=== PATIENT | male | born 1945 | race Caucasian/White ===

== ENCOUNTER → 2018-08-27 | Outpatient (CLI) | payer MEDICARE, BC ==
[~2018-08-27] MED LIST: ATORVASTATIN CA20 MG PO; BISOPROLOL FUMAR5 MG PO; CYMBALTA30 MG PO; METFORMIN HCL500 MG PO; PANTOPRAZOLE SO40 MG PO
--- NOTE | 2018-08-27 11:08 | Diagnostic Imaging Report ---
PROCEDURE: US THYROID COMPARISON: None. INDICATIONS:ENDOCRINE DISORDER TECHNIQUE: Transverse and longitudinal orozco-scale sonographic images of the thyroid were obtained and supplemented with color Doppler. FINDINGS: Right thyroid lobe: Measures 4.8 x 1.1 x 2.0 cm. Left thyroid lobe: Measures 4.2 x 1.1 x 1.9 cm. There is a small hyperechoic nodule measuring 8 x 6 x 10 mm in the mid aspect of the left thyroid lobe. Isthmus: Measures 0.3 cm. CONCLUSION: 1. Small hyperechoic nodule in the left thyroid lobe does not meet criteria for biopsy. 2. Followup in one year recommended. Marty Márquez D.O. Dictated by: Marty Márquez D.O. on 08/27/2018 at 11:18 Electronically approved by: Marty Márquez D.O. on 08/27/2018 at 11:18
--- NOTE | 2018-08-27 14:26 | Diagnostic Imaging Report ---
Parathyroid Scan with SPECT Reason for exam: 72 M with hyperparathyroidism Radiopharmaceutical: Tc-99m sestamibi 27 mCi After intravenous administration of the radiopharmaceutical, immediate and 2-hour planar images of the neck and upper chest were obtained. Tomographic images of the neck and upper chest were also obtained following the initial planar images. Distribution of tracer activity appears physiologic throughout the neck and upper chest on the planar and tomographic images. No focal areas of increased tracer accumulation are identified. On the delayed planar images, washout of tracer from the thyroid is complete with no focal areas of persistent tracer activity. Impression: Negative parathyroid scan No enlarged hypermetabolic parathyroid glands are identified. Signed by: Dr. Vonda Cabrera M.D. on 08/27/2018 2:23 PM
== END ==
LOC: US 09:27
PROVIDERS: ATTEND Family Medicine
DX: E34.9 Endocrine disorder, unspecified (principal)
CPT/HCPCS: 76536; 78071; A9512

== ENCOUNTER 2020-05-23 10:09 | Emergency (ER) | payer MEDICARE, BC ==
[~2020-05-23] VITALS: Ht 180.3 cm; Wt 97.5 kg
--- NOTE | 2020-05-23 10:36 | Emergency Department Note ---
History of Present Illnes History of Present Illness Chief Complaint: back pain History of Present Illness This is a 74 year old male, with a history of hyperlipidemia and NIDDM, who presents for evaluation of right sided back and right rib pain. Patient states that 5 days ago, he was loading the back of his truck, standing on a small step stool, and when he stepped up to get into the truck, he fell backwards onto the right side, landing on concrete. Patient did hit his head, but had no loss of consciousness. He denies any headache, dizziness, nausea, or vomiting. Patient's primary complaint is pain in the right anterior ribs, just below the right nipple, that is worse with deep inspiration. He also has a similar pain on the right side of his back, just below the tip of the scapula. He's been taking Tylenol for the pain, without much relief. He denies any fever, chills, nausea, vomiting, shortness of breath, or chest tightness. Historian: Patient Arrival Mode: Car Diabetes Manager Required: No Onset (how long ago): day(s) (5) Location: right ribs Quality: pain, sharp, stabbing Radiation: Reports non-radiation Severity: moderate Onset quality: sudden Duration (how long): day(s) (5) Timing of current episode: constant Progression: unchanged Chronicity: new Context: Reports trauma/injury Relieving factors: none Associated symptoms: Reports denies other symptoms; Denies cough, Denies fever/chills, Denies shortness of breath Treatments prior to arrival: other (Acetaminophen) Risk factors: elderly, recent fall Past Medical/Family History Physician Review I have reviewed the patient's past medical and family history. Any updates have been documented here. Past Medical History Recent Fever: No Clinical Suspicion of Infectio: No New/Unexplained Change in Ment: No Past Medical History: Diabetes (NIDDM), GERD, Hyperlipedemia Past Surgical History: T&A Other Surgery: Shoulder Social History Smoking Cessation: Never Smoker Counseling Performed: No Alcohol Use: None Any Illegal Drug Use: No TB Exposure/Symptoms: No Physically hurt or threatened: No Family History Family history of heart diseas: No Other Last Tetanus: unknown Any Pre-Existing Lines (PICC,: No Is patient up to date on immun: No Review of Systems Review of Systems Constitutional: Denies chills, Denies fever EENTM: Reports as per HPI Cardiovascular: Denies chest pain, Denies palpitations Respiratory: Reports pain on inspiration, Reports pain with cough; Denies cough, Denies dyspnea, Denies dyspnea on exertion Gastrointestinal: Denies nausea, Denies vomiting Genitourinary: Reports no symptoms Musculoskeletal: Reports back pain, Reports muscle pain; Denies neck pain Integumentary: Reports other (healing abrasion on occiput and right elbow;); Denies change in color, Denies rash Neurological: Denies numbness, Denies tingling, Denies weakness Psychological: Reports no symptoms Review of other systems: All other systems negative Physical Exam Related Data Allergies: Coded Allergies: No Known Allergies (Verified , 06/25/10) Vital signs reviewed: Yes Physical Exam CONSTITUTIONAL Constitutional: Present well-developed, Present well-nourished; Absent distressed, Absent ill appearing HENT HENT: Present normocephalic, Present atraumatic, Present oropharynx clear/moist, Present nose normal HENT L/R: Present left ext ear normal, Present right ext ear normal EYES Eyes: Reports PERRL, Reports conjunctivae normal NECK Neck: Present ROM normal, Present supple; Absent cervical adenopathy PULMONARY Pulmonary: Present breath sounds normal, Present other (visible pain with inspiration;); Absent respiratory distress, Absent chest tenderness CARDIOVASCULAR Cardiovascular: Present regular rhythm, Present heart sounds normal, Present capillary refill normal, Present normal rate GASTROINTESTINAL GENITOURINARY SKIN Skin: Present warm, Present dry, Present other (healing abrasion of occiput and right elbow;) MUSCULOSKELETAL Musculoskeletal: Present ROM normal; Absent deformity, Absent tenderness NEUROLOGICAL Neurological: Present alert, Present oriented x 3, Present no gross motor or sensory deficits PSYCHOLOGICAL Psychological: Present mood/affect normal, Present judgement normal Results Imaging Imaging results reviewed: Yes Impressions [place] [id number] Patient Name: PRAMOD GILBERT MR #: [id number] : 1945 Age/Sex: 74/M Req #: [id number] Adm Physician: Ordered by: WINDY ARELLANO MD Report #: [id number] Location: [facility] Room/Bed: Procedure: [id number] HOPD/RIBS UNILAT W/CXR- HOPD Exam Date: 05/23/20 Exam Time: 1103 REPORT STATUS: Signed EXAM: RIBS UNILAT W/CXR- HOPD DATE: 05/23/2020 10:55 AM INDICATION: Fall COMPARISON: None FINDINGS: The trachea is midline. The lungs are symmetrically expanded without evidence for focal consolidation, pneumothorax, or significant pleural effusion. The cardiomediastinal silhouette is within normal limits. No acute osseous abnormality is identified. Specifically, no radiographically evident right-sided rib fracture is appreciated. IMPRESSION: No acute cardiopulmonary process identified. No radiographically evident right-sided rib fracture appreciated. Signed by: Dr. Daniel Barnard MD on 05/23/2020 11:20 AM Dictated By: DANIEL BARNARD MD 112 Transcribed By: CORRIE on 05/23/20 112 COPY TO: WINDY ARELLANO MD~ Assessment & Plan Medical Decision Making MDM - It is very important that you practice deep breathing multiple times throughout the day, to prevent the development of pneumonia. He should breed to the point that it is uncomfortable. - He may take pain medication as directed, along with Aleve 1 tablet twice da shonna with food. - Follow-up, if you develop fever, worsening pain, shortness of breath, or productive cough. Assessment & Plan Final Impression: (1) Contusion of rib on right side (2) Pleuritic pain (3) Fall (4) Diabetes (5) Hyperlipidemia Depart Disposition: HOME, SELF-senior living Meds Active Scripts Acetaminophen/Codeine* (TYLENOL # 3*) 1 Ea Tab, 1-2 TAB PO Q6H for pain, #20 TAB 0 Refills Do NOT take and drive or operate machinery. Prov:WINDY ARELLANO MD 05/23/20 Reported Medications Bisoprolol Fumarate (BISOPROLOL FUMARATE) 5 Mg Tablet, 2.5 MG PO BID 03/20/16 Duloxetine Hcl (CYMBALTA) 30 Mg Capsule.dr, 30 MG PO DAILY, #30 CAP 03/20/16 Atorvastatin Calcium (ATORVASTATIN CALCIUM) 20 Mg Tablet, 20 MG PO DAILY, TAB 03/20/16 Metformin Hcl (METFORMIN HCL) 500 Mg Tablet, 500 MG PO DAILY, TAB 03/20/16 Pantoprazole Sodium* (PROTONIX) 40 Mg Tablet.dr, 40 MG PO DAILY, TAB 03/20/16 WINDY ARELLANO MD May 23, 2020 10:36
--- OUTSIDE RECORDS SUMMARY | 2020-05-23 10:56 | XMS REPORT | Continuity of Care Document ---
Author Author [facility] Organization [facility] Address [address] [place] [address] Phone Unavailable Care Team Providers Care Actuarial Intern Name Role Phone ZAHIRA SORIANOradhatia Unavailable Problems Condition Name Condition Details Condition Category Status Onset Date Resolution Date Last Treatment Date Treating Clinician Comments Source Diabetes mellitus type II Diab etes mellitus type II Active Problem 10/26/2019 Bert Kauffman MD, [place] Problem Active 2019-10-26 05:10:12 Dennis Hoyt Coronary atherosclerosis of [place] coronary artery Coronary atherosclerosis of [place] coronary artery Active Problem 10/26/2019 Bert Kauffman MD, [place] Problem Active 2019-10-26 05:10:12 [facility] Palpitations Palp itations Active Problem 10/26/2019 Bert Kauffman MD, [place] Problem Active 2019-10-26 05:10:12 [facility] Mixed hyperlipidemia Mixe d hyperlipidemia Active Problem 10/26/2019 Bert Kauffman MD, [place] Problem Active 2019-10-26 05 :10:12 Dennis Hoyt Family history of ischemic heart disease and other diseases of the circulatory system Family history o f ischemic heart disease and other diseases of the circulatory system Active Problem 10/26/2019 Bert Kauffman MD, PA Problem Active 2019-10-26 05:10:12 Mic Hoyt Atherosclerotic heart disease of [place] coronary artery with unspecified angina pectoris Atherosclerotic heart disease of [place] coronary artery with unspecified angina pectoris Active Problem 10/26/2019 Bert Kauffman MD, PA Problem Active 2019-10-26 05:10:12 Dennis Hoyt CAD without angina CAD without angina Active Problem 10/26/2019 Bert Kauffman MD, PA Problem Active 2019-10-26 05:10:12 [facility] Mixed hyperlipidemia Mixe d hyperlipidemia Active Problem 10/26/2019 Bert Kauffman MD, PA Problem Active 2019-10-26 05 :10:12 [facility] Lai Palpitations Palp itations Active Problem 10/26/2019 Bert Kauffman MD, PA Problem Active 2019-10-26 05:10:12 Dennis Hoyt Pulmonary hypertension, secondary Pulmonary hypertension, secondary Active Problem 10/26/2019 Bert Kauffman MD, PA Problem Active 2019-10-26 05:10:12 Memor abigail Hoyt Type 2 diabetes mellitus without complications Type 2 diabetes mellitus without complications Active Problem 10/26/2019 Bert Kauffman MD, PA Problem Active 2019-10-26 05:10:12 Mic riasuresh Hoyt Atherosclerotic heart disease of [place] coronary arter y without angina pectoris Atherosclerotic heart disease of [place] coronary artery without angina pectoris Active Problem 03/01/2016 Bert Kauffman MD, PA Problem Active 2016-03-01 04:10:05 Memor abigail Hoyt Pulmonary hypertension, unspecified Pulmonary hypertension, unspecified Active Problem 10/26/2019 Bert Kauffman MD, PA Problem Active 2019-10-26 05:10:12 Memor abigail Hoyt Body mass index (BMI) 30.0-30.9, adult Body mass index (BMI) 30.0-30.9, adult Active Problem 10/26/2019 Bert Kauffman MD, PA Problem Active 2019-10-26 05:10:12 Ricardaor abigail Hoyt Other obesity due to excess calories Other obesity due to excess calories Active Diagnosis 10/26/2019 Bert Kauffman MD, PA Diagnosis Active 2019-10-26 05:10:12 Ricardaor abigail Hoyt Allergies, Adverse Reactions, Alerts Allergy Name Allergy Type Status Severity Reaction(s) Onset Date Inacti ve Date Treating Clinician Comments Source Aspirin Aspirin Active stomach pain 2019-10-24 00:00:00 Dennis Lai Social History Social Habit Start Date Stop Date Quantity Comments Source TobaccoUse: 2016-03-05 00:00:00 2016-03-05 00:00:00 Dennis Lai Medications Ordered Medication Name Filled Medication Name Start Date Stop Da te Current Medication? Ordering Clinician Indication Dosage Frequency Signature (SIG) Comments Components Source Pantoprazole Sodium 2019-10-26 05:10:12 Yes Bert [facility]auffman 1 tablet [facility] Atorvastatin Calcium 2019-10-26 05:10:12 Yes Bert Kauffman 1 tablet [facility] Metformin HCl 2019-10-26 05:10:12 Yes Bert Kauffman 1 tablet [facility] Cymbalta 2019-10-26 05:10:12 Yes Bert Isrealn Tayyan 1 capsule [facility] Bisoprolol Fumarate 2019-06-09 04:10:05 Yes Bert Maylin Tayyan 1/2 half tablet [facility] Carvedilol 2019-06-06 00:00:00 Yes Bert Alesiawan Tayyan 1 tablet [facility] Carvedilol 2019-06-06 00:00:00 Yes Bertscarlet Carlisle Tayyan 1 tablet [facility] Cymbalta 2018-03-05 04:10:20 Yes Bertscarlet Bachn Tayyan 1 capsule [facility] Metformin HCl 2017-03-04 04:10:14 Yes Bertscarlet Dumaswan Dashawnyan 1 tablet [facility] Cymbalta 2017-03-04 04:10:14 Yes Bertscarlet Bachn Tayyan 1 capsule [facility] Pantoprazole Sodium 2017-03-04 04:10:14 Yes Bert Bachn Tayyan 1 tablet [facility] Bisoprolol Fumarate 2017-03-04 04:10:14 Yes Bert Tamezyan 1/2 half tablet [facility] Atorvastatin Calcium 2017-03-04 04:10:14 Yes Bert Tamezyan 1 tablet [facility] Vital Signs Vital Name Observation Time Observation Value Comments Source Weight 2019-10-24 21:00:00 [facility] Heart Rate 2019-10-24 21:00:00 [facility] Diastolic (mm Hg) 2019-10-24 21:00:00 [facility] Systolic (mm Hg) 2019-10-24 21:00:00 [facility] [place] Weight 2019-06-06 18:15:00 [facility] Heart Rate 2019-06-06 18:15:00 [facility] Diastolic (mm Hg) 2019-06-06 18:15:00 [facility] [place] Systolic (mm Hg) 2019-06-06 18:15:00 [facility] [place] Weight 2018-11-30 17:15:00 [facility] Heart Rate 2018-11-30 17:15:00 [facility] Diastolic (mm Hg) 2018-11-30 17:15:00 [facility] [place] Systolic (mm Hg) 2018-11-30 17:15:00 Mic [facility] Weight 2018-11-15 21:45:00 [facility] Heart Rate 2018-11-15 21:45:00 [facility] Diastolic (mm Hg) 2018-11-15 21:45:00 [facility] [place] Systolic (mm Hg) 2018-11-15 21:45:00 [facility] [place] Weight 2018-03-02 16:30:00 [facility] Heart Rate 2018-03-02 16:30:00 [facility] Diastolic (mm Hg) 2018-03-02 16:30:00 [facility] Systolic (mm Hg) 2018-03-02 16:30:00 [facility] Weight 2017-03-03 15:00:00 [facility] Heart Rate 2017-03-03 15:00:00 [facility] Diastolic (mm Hg) 2017-03-03 15:00:00 [facility] Systolic (mm Hg) 2017-03-03 15:00:00 [facility] [place] Weight 2016-03-03 20:15:00 [facility] Heart Rate 2016-03-03 20:15:00 [facility] Diastolic (mm Hg) 2016-03-03 20:15:00 [facility] Systolic (mm Hg) 2016-03-03 20:15:00 [facility] [place] Weight 2016-01-31 19:30:00 [facility] Heart Rate 2016-01-31 19:30:00 [facility] Diastolic (mm Hg) 2016-01-31 19:30:00 [facility] Systolic (mm Hg) 2016-01-31 19:30:00 [facility] [place] Weight 2015-08-02 21:00:00 [facility] Heart Rate 2015-08-02 21:00:00 [facility] Diastolic (mm Hg) 2015-08-02 21:00:00 [facility] [place] Systolic (mm Hg) 2015-08-02 21:00:00 [facility] [place] Procedures This patient has no known procedures. Encounters Start Date/Time End Date/Time Encounter Type [facility] Source 2019-10-24 15:00:00 2019-10-24 15:00:00 Outpatient Bert Marmolejo [id number] [employer]Works 2019-06-14 10:00:00 2019-06-14 10:00:00 [place] [id number] eClinicalWorks 2019-06-06 13:15:00 2019-06-06 13:15:00 [place] [id number] [employer] 2018-11-30 12:15:00 2018-11-30 12:15:00 [place] [id number] [employer]Works 2018-11-26 09:00:00 2018-11-26 09:00:00 [place] [id number] [employer]Works 2018-11-15 15:45:00 2018-11-15 15:45:00 [place] [id number] [employer]Works 2018-03-04 14:00:00 2018-03-04 14:00:00 [place] [id number] [employer]Works 2018-03-02 11:30:00 2018-03-02 11:30:00 [place] [id number] [employer]Works 2017-03-03 13:00:00 2017-03-03 13:00:00 [place] [id number] [employer]Works 2017-03-03 10:00:00 2017-03-03 10:00:00 [place] [id number] [employer]Works 2016-03-03 15:15:00 2016-03-03 15:15:00 Outpatient Bret Kauffman [place] [id number] [employer]Works 2016-02-29 09:00:00 2016-02-29 09:00:00 Outpatient Bert [place]auffman [place] [id number] [employer] 2016-01-31 14:30:00 2016-01-31 14:30:00 Outpatient Bert Kauffman [place] [id number] [employer] 2015-08-07 14:15:00 2015-08-07 14:15:00 Outpatient Bert Kauffman [place] [id number] [employer] 2015-08-02 15:00:00 2015-08-02 15:00:00 Outpatient Bert Kauffman [place], [place] [id number] [place] Results Test Description Test Time Test Comments Results Result Comments Source PARATHYROID IMAGING W SPECT 2018-08-27 14:22:00 [place] [address] Patient Name: PRAMOD GILBERT MR #: [id number] : 1945 Age/Sex: 72/M Req #: [id number] Adm Physician: Ordered by: ZAHIRA SORIANO MD Report #: [id number] Location: Room/Bed: Procedure: [id number] NM/PARATHYROID IMAGING W SPECT Exam Date: 08/27/18 Exam Time: 1045 REPORT STATUS: Signed Parathyroid Scan with SPECT Reason for exam: 72 M with hyperparathyroidism Radiopharmaceutical: Tc- 99m sestamibi 27 mCi After intravenous administration of the radiopharmaceutical, immediate and 2-hour planar images of the neck and upper chest were obtained. Tomographic images of the neck and upper chest were also obtained following the initial planar images. Distribution of tracer activity appears physiologic throughout the neck and upper chest on the planar and tomographic images. No focal areas of increased tracer accumulation are identified. On the delayed planar images, washout of tracer from the thyroid is complete with no focal areas of persistent tracer activity. Impression: Negative parathyroid scan No enlarged hypermetabolic parathyroid glands are identified. Signed by: Dr. Rojelio Cabrera M.D. on 08/27/2018 2:23 PM Dictated By: ROJELIO CABRERA MD 1422 Transcribed By: CORRIE on 08/27/18 1423 COPY TO: ZAHIRA SORIANO MD US THYROID 2018-08-27 11:19:00 [place] [address] Patient Name: PRAMOD GILBERT MR #: [id number] : 1945 Age/Sex: 72/M Req #: [id number] Adm Physician: Ordered by: ZAHIRA SORIANO MD Report #: [id number] Location: US Room/Bed: Procedure: [id number] US/US THYROID Exam Date: 08/27/18 Exam Time: 1004 REPORT STATUS: Signed PROCEDURE: US THYROID COMPARISON: None. INDICATIONS: ENDOCRINE DISORDER TECHNIQUE: Transverse and longitudinal orozco- scale sonographic images of the thyroid were obtained and supplemented with color Doppler. FINDINGS: Right thyroid lobe: Measures 4.8 x 1.1 x 2.0 cm. Left thyroid lobe: Measures 4.2 x 1.1 x 1.9 cm. There is a small hyperechoic nodule measuring 8 x 6 x 10 mm in the mid aspect of the left thyroid lobe. Isthmus: Measures 0.3 cm. CONCLUSION: 1. Small hyperechoic nodule in the left thyroid lobe does not meet criteria for biopsy. 2. Followup in one year recommended. Marty Márquez D.O. Dictated by: Marty Márquez D.O. on 08/27/2018 at 11:18 Electronically approved by: Marty Márquez D.O. on 08/27/2018 at 11:18 Dictated By: MARTY MÁRQUEZ DO 1119 Transcribed By: RICO on 08/27/18 1119 COPY TO: ZAHIRA SORIANO MD
--- OUTSIDE RECORDS SUMMARY | 2020-05-23 10:56 | XMS REPORT | Continuity of Care Document ---
Author Author Dennis Hoyt [employer] PRAMOD Villalobos [employer] Address Unknown Phone Unavailable Care Team Providers Care [employer] Professor Name Role Phone [employer] Unavailable Un available Problems Problem Status Onset Date Classification Date Reported Comments Source Diabetes mellitus type II Acti ve Problem 08/2020 Bert Kauffman MD, [place] Coronary atherosclerosis of crow coronary artery Active Problem 10/26/2019 Bert Kauffman MD, [place] Palpitations Active Problem 10/26/2019 Bert Kauffman MD, PA Mixed hyperlipidemia Active Problem 10/26/2019 Bert Kauffman MD, PA Family history of ischemic heart disease and other diseases of the circulatory system Active Problem 10/26/2019 Bert Kauffman MD, RENETTA Atherosclerotic heart disease of crow coronary artery with unspecified angina pectoris Active Problem 10/26/2019 Bert Kauffman MD, RENETTA CAD without angina Active Problem 10/26/2019 Bert Kauffmna MD, PA Mixed hyperlipidemia Active Problem 10/26/2019 Bert Kauffman MD, RENET[place] Palpitations Active Problem 10/26/2019 Bert Kauffman MD, RENET[place] Pulmonary hypertension, secondary Active Problem 08/2020 Bert Kauffman MD, PA Type 2 diabetes mellitus without complications Active Problem 10/26/2019 Bert Kauffman MD, P A Atherosclerotic heart disease of crow coronary artery without angina pectoris Active Problem 03/01/2016 Bert Kauffman MD, [place] Pulmonary hypertension, unspecified Active Problem 08/2020 Bert Kauffman MD, PA Body mass index (BMI) 30.0-30.9, adult Active Problem 08/2020 Bert Kauffman MD, PA Other obesity due to excess calories Active Diagnosis 0 10/26/2019 Bert Kauffman MD, PA Medications Medication Details Route Status Patient Instructions Ordering Provider Order Date Source Carvedilol 1 tablet Orally Active 6.25 MG Orally twice a day (bid) [place] 06/06/2019 Bert Kauffman MD, PA Carvedilol 1 tablet Orally Active 3.125 MG Orally twice a day (bid) Daly 06/06/2019 Bert Kauffman MD, PA Cymbalta 1 capsule Orally Active 30 mg Orally Once a day Daly Kauffman MD, PA Pantoprazole Sodium 1 tablet Orally Active 40 MG Orally Once a day Daly Kauffman MD, PA Atorvastatin Calcium 1 tablet Orally Active 20 MG Orally Once a day Daly Kauffman MD, PA Bisoprolol Fumarate 1/2 half t ablet Orally Active 5 MG Orally twice a day (bid) Daly Kauffman MD, PA Metformin HCl 1 tablet by mouth Active 500 mg by mouth daily Daly Kauffman MD, PA Metformin HCl 1 tablet by mouth Active 500 mg by mouth daily Daly Kauffman MD, PA Cymbalta 1 capsule Orally Active 30 mg Orally Once a day Daly Kauffman MD, PA Pantoprazole Sodium 1 tablet Orally Active 40 MG Orally Once a day Daly Kauffman MD, PA Bisoprolol Fumarate 1/2 half t ablet Orally Active 5 MG Orally twice a day (bid) Daly Kauffman MD, PA Atorvastatin Calcium 1 tablet Orally Active 20 MG Orally Once a day Daly Kauffman MD, PA Cymbalta 1 capsule Orally Active 60 MG Orally Once a day Daly Kauffman MD, PA Allergies, Adverse Reactions, Alerts Substance Category Reaction Severity Reaction type Status Date Reported Comments Source Aspirin Adverse Reaction stomach pain Adverse Reaction Active 10/24/2019 Bert Kauffman MD, PA Immunizations No Data Provided for This Section Results No Data Provided for This Section Pathology Reports No Data Provided for This Section Diagnostic Reports No Data Provided for This Section Consultation Notes No Data Provided for This Section Discharge Summaries No Data Provided for This Section History and Physicals No Data Provided for This Section Vital Signs Vital Sign Value Date Comments Source Weight 214 10/24/2019 Bert Kauffman MD, PA Heart Rate 88 10/24/2019 Bert Kauffman MD, PA Diastolic (mm Hg) 77 10/24/2019 Bert Kauffman MD, PA Systolic (mm Hg) 126 10/24/2019 Bert Kauffman MD, PA Weight 220 06/06/2019 Bert Kauffman MD, PA Heart Rate 59 06/06/2019 Bert Tayyan, MD, PA Diastolic (mm Hg) 60 06/06/2019 Bert Kauffman MD, PA Systolic (mm Hg) 126 06/06/2019 Bert Kauffman MD, PA Weight 215 11/30/2018 Bert Kauffman MD, PA Heart Rate 75 11/30/2018 Bert Kauffman MD, PA Diastolic (mm Hg) 79 11/30/2018 Bert Kauffman MD, PA Systolic (mm Hg) 121 11/30/2018 Bert Kauffman MD, PA Weight 210 11/15/2018 Bert Kauffman MD, PA Heart Rate 66 11/15/2018 Bert Kauffman MD, PA Diastolic (mm Hg) 82 11/15/2018 Bert Kauffman MD, PA Systolic (mm Hg) 115 11/15/2018 Bert Kauffman MD, PA Weight 210 03/02/2018 Bert Kauffman MD, PA Heart Rate 63 03/02/2018 Bert Kauffman MD, PA Diastolic (mm Hg) 75 03/02/2018 Bert Kauffman MD, PA Systolic (mm Hg) 118 03/02/2018 Bert Kauffman MD, PA Weight 206 03/03/2017 Bert Kauffman MD, PA Heart Rate 58 03/03/2017 Bert Kauffman MD, PA Diastolic (mm Hg) 60 03/03/2017 Bert Kauffman MD, PA Systolic (mm Hg) 130 03/03/2017 Bert Kauffman MD, PA Weight 206 03/03/2016 Bert Kauffman MD, PA Heart Rate 78 03/03/2016 Bert Kauffman MD, PA Diastolic (mm Hg) 80 03/03/2016 Bert Kauffman MD, PA Systolic (mm Hg) 122 03/03/2016 Bert Kauffman MD, PA Weight 210 01/31/2016 Bert Kauffman MD, PA Heart Rate 78 01/31/2016 Bert Kauffman MD, PA Diastolic (mm Hg) 80 01/31/2016 Bert Kauffman MD, PA Systolic (mm Hg) 130 01/31/2016 Bert Kauffman MD, PA Weight 205 08/02/2015 Bert Kauffman MD, PA Heart Rate 70 08/02/2015 Bert Kauffman MD, PA Diastolic (mm Hg) 70 08/02/2015 Bert Kauffman MD, PA Systolic (mm Hg) 118 08/02/2015 Bert Kauffman MD, PA Encounters Location Location Details Encounter Type Encounter Number Reason For Visit Attending Provider ADM Date DC Date Status Source Bert Kauffman MD, RENETTA Unknown [id number] 08/02/20 15 08/02/2015 Bert Kauffman MD, PA Bert Kauffman MD, PA Unknown [id number] 08/02/20 15 08/02/2015 Bert Kauffman MD, PA Bert Kauffman MD, PA Unknown [id number] 08/02/20 15 08/02/2015 Bert Kauffman MD, PA Bert Kauffman MD, PA Unknown [id number] 08/02/20 15 08/02/2015 Bert Kauffman MD, PA Bert Kauffman MD, PA Unknown [id number] 08/02/20 15 08/02/2015 eBrt Kauffman MD, PA Bert Kauffman MD, PA echo/carotid/arterial dopplers [id number] 08/07/2015 08/07/2015 Bert Kauffman MD, PA Bert Kauffman MD, PA echo/carotid/arterial dopplers [id number] 08/07/2015 08/07/2015 Bert Kauffman MD, PA Bert Kauffman MD, PA echo/carotid/arterial dopplers [id number] 08/07/2015 08/07/2015 Bert Kauffman MD, PA Bert Kauffman MD, PA echo/carotid/arterial dopplers [id number] 08/07/2015 08/07/2015 Bert Kauffman MD, PA Bert Kauffman MD, PA Follow-Up [id number] 01/31/20 16 01/31/2016 Bert Kauffman MD, PA Bert Kauffman MD, PA Follow-Up [id number] 01/31/20 16 01/31/2016 Bert Kauffman MD, PA Bert Kauffman MD, PA Follow-Up [id number] 01/31/20 16 01/31/2016 Bert Kauffman MD, PA Bert Kauffman MD, PA Office stress test [id number] 02/29/20 16 02/29/2016 Bert Kauffman MD, PA Bert Kauffman MD, PA Office stress test [id number] 02/29/20 16 02/29/2016 Bert Kauffman MD, PA Bert Kauffman MD, PA Follow-Up [id number] 03/03/20 16 03/03/2016 Bert Kauffman MD, PA Procedures No Data Provided for This Section Assessment and Plan No Data Provided for This Section Plan of Care No Data Provided for This Section Social History Social History Date Source Social History ElementQualifiersDate Rep orted Tobacco Use: . Are you a: former smoker quit in 1991March 05, 2016 Marital Status: . March 05, 2016 Do you drink alcohol? . Status: No March 05, 2016 03/05/2016 Bert Kauffman MD, P A Family History No Data Provided for This Section Advance Directives No Data Provided for This Section Functional Status No Data Provided for This Section
[2020-05-23] MEDS ORDERED: HYDROCODONE/APAP 5MG-325MG TAB PO ONE (11:15)
--- NOTE | 2020-05-23 11:23 | Diagnostic Imaging Report ---
EXAM: RIBS UNILAT W/CXR- [facility] DATE: 05/23/2020 10:55 AM INDICATION: Fall COMPARISON: None FINDINGS: The trachea is midline. The lungs are symmetrically expanded without evidence for focal consolidation, pneumothorax, or significant pleural effusion. The cardiomediastinal silhouette is within normal limits. No acute osseous abnormality is identified. Specifically, no radiographically evident right-sided rib fracture is appreciated. IMPRESSION: No acute cardiopulmonary process identified. No radiographically evident right-sided rib fracture appreciated. Signed by: Dr. Daniel Thompson MD on 05/23/2020 11:20 AM
[2020-05-23] MEDS ORDERED: HYDROCODONE/APAP 5MG-325MG TAB ONE (11:40)
[2020-05-23] MEDS ORDERED: TYLENOL # 31 EA PO (11:50)
== END 2020-05-23 12:34 | disposition home or self-care (01) ==
LOC: FSED 10:54
DX: R07.81 Pleurodynia (principal); S20.211A Contusion of right front wall of thorax, initial encounter; W17.89XA Other fall from one level to another, initial encounter; Y92.008 Other place in unspecified non-institutional (private) residence as the place of occurrence of the external cause; E11.9 Type 2 diabetes mellitus without complications; E78.5 Hyperlipidemia, unspecified; K21.9 Gastro-esophageal reflux disease without esophagitis
CPT/HCPCS: 71101; 99283

== ENCOUNTER 2022-06-16 12:01 | Emergency (ER) | payer MEDICARE, BC ==
[~2022-06-16] VITALS: Ht 177.8 cm; Wt 98.7 kg
[~2022-06-16 12:01] MED LIST changes: +TYLENOL # 31 EA PO
[2022-06-16] MEDS ORDERED: CARVEDILOL3.125 MG PO (12:19)
[2022-06-16] MEDS ORDERED: DOCUSATE SODIU100 MG PO (12:19)
[2022-06-16] MEDS ORDERED: VITAMIN D325 MCG (12:19)
[2022-06-16] MEDS ORDERED: TRAZODONE HCL50 MG PO (12:19)
[2022-06-16] MEDS ORDERED: LITHOBID300 MG PO (12:19)
== END 2022-06-16 12:47 | disposition home or self-care (01) ==
LOC: FSED 12:22
DX: T16.1XXA Foreign body in right ear, initial encounter (principal); I10 Essential (primary) hypertension; E11.9 Type 2 diabetes mellitus without complications; E78.5 Hyperlipidemia, unspecified; K21.9 Gastro-esophageal reflux disease without esophagitis; F32.A Depression, unspecified; Z85.46 Personal history of malignant neoplasm of prostate
CPT/HCPCS: 99283

== ENCOUNTER 2024-01-07 19:28 | Inpatient (IN) | payer MEDICARE, BC ==
[~2024-01-07] VITALS: Ht 177.8 cm; Wt 95.3 kg
[~2024-01-07 19:28] MED LIST changes: +CARVEDILOL3.125 MG PO; +CEFUROXIME250 MG PO; +DOCUSATE SODIU100 MG PO; +LITHOBID300 MG PO; +TRAZODONE HCL50 MG PO; +VITAMIN D325 MCG
[2024-01-07] MEDS ORDERED: ONDANSETRON HCL INJ 2MG/ML 2ML 2 MG/ML VIAL IV PRN (20:30)
[2024-01-07] MEDS ORDERED: Morphine 4mg INJECTION 4 MG/ML INJ IV PRN (20:30)
[2024-01-07] MEDS ORDERED: PIPERACILLIN/TAZOBACTAM 3.375 GM VIAL ONE ×2 (20:35→23:05)
[2024-01-07 20:45] LABS: BASOPHILS % 0.4 % (0.0-1.0); EOSINOPHILS # (AUTO) 0.1 (0.0-0.4); EOSINOPHILS % 0.6 % (0.0-6.0); HEMATOCRIT 39.9 % (38.2-49.6); HEMOGLOBIN 13.4 g/dL (14.0-18.0); LYMPHOCYTES # (AUTO) 1.9 (1.0-3.2); MEAN CORPUSCULAR HEMOGLOBIN 26.9 pg (28-32); MEAN CORPUSCULAR HGB CONC 33.6 g/dL (31-35); MEAN CORPUSCULAR VOLUME 80.1 fL (81-99); MONOCYTES # (AUTO) 0.5 (0.2-0.8); NEUTROPHILS # (AUTO) 7.1 (2.1-6.9); NEUTROPHILS % 73.4 % (38.7-80.0); PLATELET COUNT 369 x10e3/uL (140-360); RED BLOOD COUNT 4.98 x10e6/uL (4.3-5.7); RED CELL DISTRIBUTION WIDTH 15.8 % (11.7-14.4); WHITE BLOOD COUNT 9.64 x10e3/uL (4.8-10.8)
[2024-01-07 20:50] LABS: CLARITY,URINE SL CLOUDY (CLEAR); COLOR,URINE YELLOW (YELLOW)
[2024-01-07 20:51] LABS: BILIRUBIN,URINE SMALL (NEGATIVE); GLUCOSE, URINE NEGATIVE (NEGATIVE); KETONES,URINE TRACE (NEGATIVE); LEUKOCYTE ESTERASE ,URINE NEGATIVE (NEGATIVE); NITRITE,URINE NEGATIVE (NEGATIVE); PH,URINE 5.5 (5 - 7); PROTEIN,URINE DIPSTICK TRACE (NEGATIVE); URINE UROBILINOGEN 0.2 mg/dL (0.2 - 1)
[2024-01-07 21:01] LABS: ALBUMIN 3.2 g/dL (3.5-5.0); ALBUMIN/GLOBULIN RATIO 0.7 (0.8-2.0); ANION GAP 15.9 mmol/L (8-16); BILIRUBIN,TOTAL 0.5 mg/dL (0.2-1.2); CALCIUM 9.9 mg/dL (8.4-10.2); CREATININE, SERUM 1.36 mg/dL (0.72-1.25); POTASSIUM 4.9 mmol/L (3.5-5.1); TOTAL PROTEIN 7.7 g/dL (6.5-8.1)
[2024-01-07 21:04] LABS: WBC,URINE (MAN) 0-5 /HPF (0-5)
[2024-01-07 21:05] LABS: BACTERIA,URINE MODERATE /HPF
[2024-01-07] MEDS ORDERED: HYDRALAZINE HCL 20 MG/ML VIAL IV PRN (21:30)
[2024-01-07] MEDS ORDERED: HYDROCODONE/APAP 5MG-325MG TAB PO PRN (21:30)
[2024-01-07] MEDS ORDERED: ACETAMINOPHEN 325 MG TAB PO PRN (21:30)
[2024-01-07] MEDS ORDERED: SODIUM CHLORIDE 0.9% 1000ML 1,000 ML ONE (23:05)
[2024-01-07] MEDS ORDERED: MELATONIN3 MG PO (23:16)
[2024-01-07] MEDS ORDERED: OXYBUTYNIN CHLOR5 MG PO (23:16)
[2024-01-07] MEDS ORDERED: berberine PO (23:16)
[2024-01-07 23:27] VITALS: BP 139/70; PULSE 67; RESP 18; TEMP 97.8; O2SAT 98
[2024-01-07 23:31] VITALS: BP 139/70; PULSE 67; RESP 18; TEMP 97.8; O2SAT 98
[2024-01-07] MEDS: SODIUM CHLORIDE 0.9% 1000ML 1,000 ML IV SCH (23:44)
[2024-01-08] VITALS (7 sets, daily range): BP systolic 112–139; BP diastolic 63–70; PULSE 63–70; RESP 16–20; TEMP 97.4–98.5; O2SAT 96–99
[2024-01-08 06:20] LABS: BASOPHILS % 0.5 % (0.0-1.0); EOSINOPHILS # (AUTO) 0.1 (0.0-0.4); EOSINOPHILS % 1.1 % (0.0-6.0); HEMATOCRIT 35.2 % (38.2-49.6); HEMOGLOBIN 11.3 g/dL (14.0-18.0); LYMPHOCYTES % 22.8 % (18.0-39.1); MEAN CORPUSCULAR HEMOGLOBIN 26.2 pg (28-32); MEAN CORPUSCULAR HGB CONC 32.1 g/dL (31-35); MEAN CORPUSCULAR VOLUME 81.5 fL (81-99); MONOCYTES # (AUTO) 0.7 (0.2-0.8); MONOCYTES % 8.4 % (4.4-11.3); NEUTROPHILS # (AUTO) 5.7 (2.1-6.9); NEUTROPHILS % 66.5 % (38.7-80.0); PLATELET COUNT 314 x10e3/uL (140-360); RED BLOOD COUNT 4.32 x10e6/uL (4.3-5.7); RED CELL DISTRIBUTION WIDTH 15.6 % (11.7-14.4); WHITE BLOOD COUNT 8.54 x10e3/uL (4.8-10.8)
[2024-01-08 06:57] LABS: ALBUMIN 2.6 g/dL (3.5-5.0); ALBUMIN/GLOBULIN RATIO 0.7 (0.8-2.0); ANION GAP 13.4 mmol/L (8-16); BILIRUBIN,TOTAL 0.5 mg/dL (0.2-1.2); CALCIUM 8.6 mg/dL (8.4-10.2); CREATININE, SERUM 1.28 mg/dL (0.72-1.25); POTASSIUM 4.4 mmol/L (3.5-5.1); TOTAL PROTEIN 6.1 g/dL (6.5-8.1)
[2024-01-08] MEDS: PANTOPRAZOLE SOD 40 MG TABEC PO SCH (10:35)
[2024-01-08] MEDS: DULOXETINE HCL 30 MG DELAYED RELEASE PO SCH (10:35)
[2024-01-08] MEDS: CARVEDILOL 3.125 MG TAB PO SCH (10:35)
[2024-01-08] MEDS ORDERED: SODIUM CHLORIDE 0.9% 1000ML 1,000 ML ONE (16:05)
[2024-01-08] MEDS: ENOXAPARIN SOD INJ 40 MG/0.4 ML SYR SC SCH (19:13)
[2024-01-08] MEDS ORDERED: MELATONIN 3 MG TAB PO SCH (21:00)
[2024-01-08] MEDS: MELATONIN 5 MG TABLET PO SCH (21:16)
[2024-01-08] MEDS: TRAZODONE HCL 50 MG TAB PO SCH (21:16)
[2024-01-09] VITALS: BP 119/68; PULSE 71; RESP 18; TEMP 98; O2SAT 99
[2024-01-09 04:00] VITALS: BP 124/64; PULSE 69; RESP 18; TEMP 98.5; O2SAT 99
[2024-01-09 06:43] LABS: BASOPHILS % 0.5 % (0.0-1.0); EOSINOPHILS # (AUTO) 0.1 (0.0-0.4); EOSINOPHILS % 0.9 % (0.0-6.0); HEMATOCRIT 35.2 % (38.2-49.6); HEMOGLOBIN 11.1 g/dL (14.0-18.0); LYMPHOCYTES # (AUTO) 1.7 (1.0-3.2); LYMPHOCYTES % 21.6 % (18.0-39.1); MEAN CORPUSCULAR HEMOGLOBIN 26.2 pg (28-32); MEAN CORPUSCULAR HGB CONC 31.5 g/dL (31-35); MEAN CORPUSCULAR VOLUME 83.2 fL (81-99); MONOCYTES # (AUTO) 0.6 (0.2-0.8); MONOCYTES % 8.2 % (4.4-11.3); NEUTROPHILS # (AUTO) 5.3 (2.1-6.9); NEUTROPHILS % 68.4 % (38.7-80.0); PLATELET COUNT 327 x10e3/uL (140-360); RED BLOOD COUNT 4.23 x10e6/uL (4.3-5.7); RED CELL DISTRIBUTION WIDTH 15.9 % (11.7-14.4); WHITE BLOOD COUNT 7.69 x10e3/uL (4.8-10.8)
[2024-01-09 07:30] LABS: ALBUMIN 2.6 g/dL (3.5-5.0); ALBUMIN/GLOBULIN RATIO 0.7 (0.8-2.0); ANION GAP 12.2 mmol/L (8-16); BILIRUBIN,TOTAL 0.4 mg/dL (0.2-1.2); CALCIUM 8.6 mg/dL (8.4-10.2); CREATININE, SERUM 1.2 mg/dL (0.72-1.25); POTASSIUM 4.2 mmol/L (3.5-5.1); TOTAL PROTEIN 6.2 g/dL (6.5-8.1)
[2024-01-09] MEDS ORDERED: BACTRIM DS TAB1 EACH PO (07:37)
[2024-01-09 08:50] VITALS: BP 124/64; PULSE 69; RESP 18; TEMP 98.5; O2SAT 99
[2024-01-09 10:53] VITALS: BP 119/65; PULSE 65; RESP 15; TEMP 98.2; O2SAT 95
== END 2024-01-09 11:52 | disposition home or self-care (01) | DRG 728 ==
LOC: ER 19:35 → ERHOLD 20:29 → MED/SURG2 22:37
PROVIDERS: ADMIT Internal Medicine; ATTEND Internal Medicine
DX: N45.1 Epididymitis (principal); N17.9 Acute kidney failure, unspecified; E11.42 Type 2 diabetes mellitus with diabetic polyneuropathy; F43.10 Post-traumatic stress disorder, unspecified; I10 Essential (primary) hypertension; E78.5 Hyperlipidemia, unspecified; K21.9 Gastro-esophageal reflux disease without esophagitis; N43.3 Hydrocele, unspecified; N43.41 Spermatocele of epididymis, single; E66.9 Obesity, unspecified; Z68.30 Body mass index [BMI] 30.0-30.9, adult; N40.0 Benign prostatic hyperplasia without lower urinary tract symptoms; F32.9 Major depressive disorder, single episode, unspecified; Z87.891 Personal history of nicotine dependence; Z79.84 Long term (current) use of oral hypoglycemic drugs; Z79.899 Other long term (current) drug therapy
CPT/HCPCS: 36415; 80053; 81001; 85025; 99284; J1650; J2543; J7030

== ENCOUNTER → 2024-10-03 | Outpatient (REF) | payer MEDICARE, BC ==
[~2024-10-03] MED LIST changes: +BACTRIM DS TAB1 EACH PO; +IOPAMIDOL 370 MG/ML 100 ML INFUS..BTL INJ ONE; +LEVOFLOXACIN500 MG PO; +MELATONIN3 MG PO; +OXYBUTYNIN CHLOR5 MG PO; +berberine PO
[2024-10-03 15:44] LABS: CREATININE, SERUM 1.25 mg/dL (0.72-1.25)
== END ==
LOC: CT 14:53
PROVIDERS: ATTEND Internal Medicine
DX: R51.9 Headache, unspecified (principal); M54.50 Low back pain, unspecified; R10.9 Unspecified abdominal pain; Z91.81 History of falling
CPT/HCPCS: 36415; 70450; 72131; 74177; 82565; 84520; Q9967